=== PATIENT | female | born 1975 | race Caucasian/White ===

== ENCOUNTER 2016-09-26 09:37 | Emergency (ER) | payer OTHER ==
[2016-09-26 09:56] VITALS: BP 143/70
--- NOTE | 2016-09-26 10:40 | RAD ---
INDICATION: Left lateral ankle pain and swelling after inversion injury COMPARISON: None. TECHNIQUE: 3 views of the left ankle and 3 views of the left foot were obtained. FINDINGS: There is moderate soft tissue swelling overlying the fibular malleolus. The well corticated bones exhibit normal alignment. Degenerative changes include enthesophyte formation at the calcaneal tubercle at the origin of the plantar fascia. Joint spaces appear maintained. No fracture is seen. IMPRESSION: SOFT TISSUE SWELLING OVERLYING THE FIBULAR MALLEOLUS WITHOUT RADIOGRAPHICALLY APPARENT FRACTURE OR DISLOCATION. If the patient's symptoms persist, follow-up imaging is recommended.
--- NOTE | 2016-09-26 11:52 | UC ---
Delta Wayne Matthew, scribed for Anson Mancini MD on 09/26/16 at 1004 . Lower Extremity/Ankle HPI - HPI Summary HPI Summary: A 41 y/o female presents to the ED with left foot pain since yesterday at 22: 00. The patient states that she step of a shallow step and inverted her foot inward. The patient is unable to bear weight at this time. Associated symptoms include swelling and decreased ROM. The patient denies decreased sensation. PMHx depression and anxiety. FHx of CA. - History of Current Complaint Chief Complaint: UCLowerExtremity Stated Complaint: ANKLE INJURY Time Seen by Provider: 09/26/16 09:47 Hx Obtained From: Patient Hx Last Menstrual Period: Currently menstruating ?: No Onset/Duration: Sudden Onset, Lasting Days, Still Present Severity Initially: Moderate Severity Currently: Moderate Pain Intensity: 6 Pain Scale Used: 0-10 Numeric Aggravating Factor(s): Standing, Ambulation Alleviating Factor(s): Elevation Able to Bear Weight: No - Allergies/Home Medications Allergies/Adverse Reactions: Allergies Allergy/AdvReac Type Severity Reaction Status Date / Time Bupropion [From Wellbutrin] Allergy Altered Verified 09/26/16 09:53 Mental Status Loratadine [From Claritin-D] Allergy Shakes Verified 08/25/13 15:07 Pseudoephedrine Allergy Shakes Verified 08/25/13 15:07 [From Claritin-D] Home Medications: Home Medications Fish Oil 1 tab PO DAILY 09/26/16 [History Confirmed 09/26/16] Fluoxetine HCl [Prozac] 30 cap PO DAILY 09/26/16 [History Confirmed 09/26/16] Turmeric (Curcuma Longa) [Turmeric] 1 tab PO DAILY 09/26/16 [History Confirmed 09/26/16] PMH/Surg Hx/FS Hx/Imm Hx Endocrine History Of: Denies: Diabetes, Thyroid Disease Cardiovascular History Of: Denies: Cardiac Disorders, Hypertension Respiratory History Of: Reports: Asthma - Allergy induced Denies: COPD GI/ History Of: Denies: Ulcer Other History Of: Negative For: Anticoagulant Therapy - Surgical History Surgical History: None - Family History Family History: FHx of CA - Social History Alcohol Use: Occasionally Substance Use Type: None Smoking Status (MU): Never Smoked Tobacco - Immunization History Most Recent Influenza Vaccination: 2015/2016 Review of Systems Constitutional: Negative - swelling of the left foot Skin: Negative Eyes: Negative ENT: Negative Respiratory: Negative Cardiovascular: Negative Gastrointestinal: Negative Genitourinary: Negative Motor: Negative Neurovascular: Negative Musculoskeletal: Decreased ROM - left foot, Edema - left foot, Myalgia - left foot Neurological: Negative Psychological: Negative All Other Systems Reviewed And Are Negative: Yes Physical Exam Triage Information Reviewed: Yes Vital Signs: Initial Vital Signs Temp 96.4 F 09/26/16 09:45 Pulse 79 09/26/16 09:45 Resp 18 09/26/16 09:45 BP 143/70 09/26/16 09:45 Pulse Ox 100 09/26/16 09:45 Vital Signs Reviewed: Yes - Additional Comments VITAL SIGNS: Reviewed. GENERAL: Patient is a well developed and nourished female who is lying comfortable in the stretcher. Patient is not in any acute respiratory distress. HEAD AND FACE: Normocephalic EYES: PERRLA, EOMI x 2. EARS: Hearing grossly intact. MOUTH: Oropharynx within normal limits. NECK: Supple, trachea is midline, no adenopathy, no JVD, no carotid bruit. CHEST: Symmetric, no tenderness at palpation LUNGS: Clear to auscultation bilaterally. No wheezing or crackles. CVS: Regular rate and rhythm, S1 and S2 present, no murmurs or gallops appreciated. ABDOMEN: Soft, non-tender. Bowel sounds are normal. No abdominal abnormal pulsations. EXTREMITIES: Full ROM in all major joints except the left ankle, no edema except in the left ankle, no cyanosis or clubbing in all major joints. The patient is unable to bear weight in the left ankle and has positive swelling in the left lateral malleolus and positive point tenderness in the left lateral malleolus. She also has decreased ROM. Good pulses, good capillary refill, and good sensation in the left foot. There is no swelling or pain in the left knee. NEURO: Alert and oriented x 3. No acute neurological deficits. Speech is normal and follows commands. SKIN: Dry and warm Diagnostics - Radiology Left Foot XR Xray Interpretation: No Acute Changes - IMPRESSION: SOFT TISSUE SWELLING OVERLYING THE FIBULAR MALLEOLUS WITHOUT RADIOGRAPHICALLY APPARENT FRACTURE OR DISLOCATION. Radiology Interpretation Completed By: Radiologist Left Ankle XR Xray Interpretation: No Acute Changes - IMPRESSION: SOFT TISSUE SWELLING OVERLYING THE FIBULAR MALLEOLUS WITHOUT RADIOGRAPHICALLY APPARENT FRACTURE OR DISLOCATION. Radiology Interpretation Completed By: Radiologist Lower Extremity Course/Dx - Course Course Of Treatment: A 41 y/o female presents to the ED with left foot pain since yesterday at 22:00. The patient states that she step of a shallow step and inverted her foot inward. The patient is unable to bear weight at this time. Associated symptoms include swelling and decreased ROM. The patient denies decreased sensation. PMHx depression and anxiety. FHx of CA. XR of the left foot and ankle show no acute fracture or dislocation with only soft tissue swelling. Since the patient is unable to bear weight, I will place the patient in a Gell cast and give her crutches. The patient will be given pain medications and discharged home with PCP follow-up. She was instructed that if she continues to have more pain and swelling she might need further work-up and management with possible CT of the ankle looking for any hidden fractures. She understands and agrees. She is hemodynamically stable and A&Ox3. I discussed all the findings and test results with the patient. Patient was instructed to return to the emergency room immediately if any of the symptoms return or worsens. Plan of care was discussed with the patient and understands and agrees. All questions were answered at patient satisfaction. There were no further complaints or concerns. Lung exam before discharge: CTA B/L. Good air exchange. No wheezing or crackles heard. CVS: S1 and S2 present. No murmurs appreciated. Patient is alert and oriented x 3. Patient is hemodynamically stable. 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 The documentation as recorded by the scribeDelta Matthew accurately reflects the service I personally performed and the decisions made by me, Anson Mancini MD.
== END 2016-09-26 11:26 | disposition home or self-care (01) ==
LOC: UCEAST 09:37
DX: S93.402A Sprain of unspecified ligament of left ankle, initial encounter (principal); X50.1XXA Overexertion from prolonged static or awkward postures, initial encounter; Y93.9 Activity, unspecified; Y92.9 Unspecified place or not applicable; Z88.8 Allergy status to other drugs, medicaments and biological substances
CPT/HCPCS: 99213; G0463

== ENCOUNTER 2019-07-03 10:58 | Emergency (ER) | payer BC, OTHER ==
[2019-07-03 11:18] VITALS: BP 133/77
--- NOTE | 2019-07-03 12:15 | UC ---
Throat Pain/Nasal Timothy HPI - HPI Summary HPI Summary: swollen pain throat with fever for 2 days - History of Current Complaint Chief Complaint: UCRespiratory Stated Complaint: SORE THROAT Time Seen by Provider: 07/03/19 11:59 Hx Obtained From: Patient Hx Last Menstrual Period: one week ago ?: No Onset/Duration: Sudden Onset, Lasting Days - 2 Pain Intensity: 7 Pain Scale Used: 0-10 Numeric Cough: None Associated Signs & Symptoms: Positive: Fever - Allergies/Home Medications Allergies/Adverse Reactions: Allergies Allergy/AdvReac Type Severity Reaction Status Date / Time bupropion [From Wellbutrin] Allergy Altered Verified 07/03/19 11:19 Mental Status loratadine Allergy Shakes Verified 07/03/19 11:19 pseudoephedrine Allergy Shakes Verified 07/03/19 11:19 PMH/Surg Hx/FS Hx/Imm Hx Previously Healthy: No Respiratory History: Asthma - mild intermittent Other History Of: Negative For: Anticoagulant Therapy - Surgical History Surgical History: None - Family History Known Family History: Positive: Other Family History: FHx of [place] - Social History Occupation: Works From/At Home Lives: With Family Alcohol Use: Occasionally Substance Use Type: Marijuana Smoking Status (MU): Current Some Day Smoker - Immunization History Most Recent Influenza Vaccination: 2015/2016 Review of Systems All Other Systems Reviewed And Are Negative: Yes Constitutional: Positive: Fever, Chills Skin: Positive: Negative Eyes: Positive: Negative ENT: Positive: Sore Throat Respiratory: Positive: Negative Cardiovascular: Positive: Negative Gastrointestinal: Positive: Negative Genitourinary: Positive: Negative Motor: Positive: Negative Neurovascular: Positive: Negative Musculoskeletal: Positive: Negative Neurological: Positive: Negative Psychological: Positive: Negative Is Patient Immunocompromised?: No Physical Exam Triage Information Reviewed: Yes Appearance: No Pain Distress, Well-Nourished, Ill-Appearing - mild Vital Signs: Initial Vital Signs Temp 99.7 F 07/03/19 11:16 Pulse 96 07/03/19 11:16 Resp 16 07/03/19 11:16 BP 133/77 07/03/19 11:16 Pulse Ox 99 07/03/19 11:16 Vital Signs Reviewed: Yes Eye Exam: Normal Eyes: Positive: Conjunctiva Clear ENT Exam: Normal ENT: Positive: Normal ENT inspection, Hearing grossly normal, Pharynx normal, TMs normal, Tonsillar swelling, Tonsillar exudate - beefy red, Uvula midline. Negative: Nasal congestion, Trismus, Muffled voice, Hoarse voice, Dental tenderness, Sinus tenderness Dental Exam: Normal Neck exam: Other Neck: Positive: Supple, Nontender, Enlarged Nodes @ - anterior cervical bilaterally Respiratory Exam: Normal Respiratory: Positive: Chest non-tender, Lungs clear, Normal breath sounds, No respiratory distress, No accessory muscle use Cardiovascular Exam: Normal Cardiovascular: Positive: RRR, No Murmur, Pulses Normal, Brisk Capillary Refill Musculoskeletal Exam: Normal Musculoskeletal: Positive: Strength Intact, ROM Intact, No Edema Neurological Exam: Normal Neurological: Positive: Alert, Muscle Tone Normal Psychological Exam: Normal Skin Exam: Normal Diagnostics - Laboratory Lab Results: rst- Throat Pain/Nasal Course/Dx - Course Course Of Treatment: Will treat clinically for strep---patient reports past eipsode of rapid negative and culture +, patient will rest increase fluids, alternate tylenol ibuprofen for fever and pain control and will follow with pcp prn - Differential Dx/Diagnosis Provider Diagnosis: Acute bacterial tonsillitis Discharge ED - Sign-Out/Discharge Documenting (check all that apply): Patient Departure All imaging exams completed and their final reports reviewed: No Studies - Discharge Plan Condition: Stable Disposition: HOME Prescriptions: Amoxicillin PO (*) [Amoxicillin 875 MG (*)] 875 mg PO BID #20 tab Patient Education Materials: Tonsillitis (ED) Referrals: Abel Berry MD [Primary Care Provider] - If Needed - Billing Disposition and Condition Condition: STABLE Disposition: Home - Attestation Statements Provider Attestation: I was available for consult. This patient was seen by the JUAN. The patient was not presented to, seen by, or examined by me. -Shalonda
== END 2019-07-03 12:44 | disposition home or self-care (01) ==
LOC: UCEAST 10:58
DX: J03.80 Acute tonsillitis due to other specified organisms (principal); B96.89 Other specified bacterial agents as the cause of diseases classified elsewhere; J45.909 Unspecified asthma, uncomplicated; F17.200 Nicotine dependence, unspecified, uncomplicated; Z88.8 Allergy status to other drugs, medicaments and biological substances
CPT/HCPCS: 87651; 99212; G0463